=== PATIENT | female | born 1990 | race Hispanic/Latino ===

== ENCOUNTER 2018-07-31 18:45 | Inpatient (IN) | payer BC ==
[2018-07-31 20:06] VITALS: BMI 28.3
[2018-07-31] MEDS ORDERED: Lactated Ringer's 1,000 ML IV ONE (20:08)
[2018-07-31] MEDS ORDERED: Lactated Ringer's 1,000 ML IV SCH (20:15)
[2018-07-31 21:10] LABS: BASO % 0.3 % (0.0-2.0); EOS % 0.7 % (0.0-4.0); HEMOGLOBIN 11.5 g/dL (12.0-16.0); LYMPH # 1.7 K/uL (1.0-4.3); LYMPH % 24.5 % (20.0-40.0); MEAN CELL VOLUME 89.9 fl (81.0-99.0); MEAN CORPUSCULAR HEMOGLOBIN 30.5 pg (27.0-31.0); MEAN CORPUSCULAR HGB CONC 33.9 g/dL (33.0-37.0); MEAN PLATELET VOLUME 10.1 fl (7.2-11.7); MONO # 0.6 K/uL (0.0-0.8); MONO % 8.1 % (0.0-10.0); NEUT # 4.7 K/uL (1.8-7.0); NEUT % 66.4 % (50.0-75.0); NRBC % 0.2 % (0.0-0.0); RBC 3.78 Mil/uL (3.80-5.20); RED CELL DISTRIBUTION WIDTH 13.3 % (11.5-14.5); WHITE BLOOD COUNT 7.1 K/uL (4.8-10.8)
--- NOTE | 2018-08-01 04:42 | OBHP ---
Datetime: 07/31/2018 20:06 Admit Comment, IP Provider: 27 y/o , 40.2 wks with SHRADDHA of 07/29/18 based on LMP presents to [facility] with LOF that started 16:40 today. Patient reports leaking of clear fluid mixed with brownish dischag e every 30 mins which increases with standing up. Denies VB. Reports irregular CTx and lower abdomina l pressure and endorses good FM. Denies dysuria, F/C/N/V/D. : Dr. Vang, Denies any complications. Currently on Synthroid 50 mcg for Hypothyroidism. PMHx: Hypothyropidism x 1 year PSHx: Denies Allergies: NKDA Medications: Levothyroxine, PNVs F/H: Noncontributory SOcial: Denies ETOH/smoking/drugs PE: Gen: NAD Heart: RRR, S1S2 present Lungs: CTAB Abdomen: NT, gravid, BS+ Ext: No pedal edema or calf tenderness SSE: Gross pooling + No VB(Done by Dr. Hunt) SVE: Fingertip A/P: 27 y/o , 40.2 wks with SHRADDHA of 07/29/18 based on LMP presents with SROM - EFM and Strang monitoring - SSE: Gross pooling + No VB - SVE: Fingertip - admit to hospital - HIV Neg, RPR neg, HbSAg Neg, Rubella immune, GBS Neg - Initiate labor protocol - LR 999 and 125 - Cytotec 25 mg followed by 50 mg Q4 - Monitor for cervical changes Case discussed with OB attending Patrick Mahoney, PGY1 Patrick Mahoney, PGY1 Pelvic Type - PN: Not Done Extremities - PN: Normal Abdomen - PN: Normal Back - PN: Normal Breast - PN: Not Done Lungs - PN: Normal Heart - PN: Normal Thyroid - PN: Normal Neurologic - PN: Normal HEENT - PN: Normal General - PN: Normal Comments, ACOG Physical Exam: Gen: NAD Heart: RRR, S1S2 present Lungs: CTAB Abdomen: NT, gravid, BS+ Ext: No pedal edema or calf tenderness SSE: Gross pooling + No VB(Done by Dr. Hunt) SVE: Fingertip IP Hx Assessment: The History has been Reviewed and is Current EGA AdmitDate IP: 40.2 IP Indication for Induction: PROM IP Chief Complaint: Suspected ruptured membranes Genitourinary Exam: Normal DTRs - PN: Not Done Datetime: 07/31/2018 19:51 IP Adm Impression: Term, intrauterine ; No Active Labor; Ruptured Membranes IP Admit Plan: Admit to unit Presentation-Admit: Oblique FHR - Baseline A Provider: 130 Amniotic Fluid Color, Provider: Clear Membranes, Provider: Ruptured Contraction Comments Provider: Irregular Pool Provider: Positive Vital Signs Provider: Reviewed; Within Normal Limits NICHD Variability Prov Fetus A: Moderate 6-25bpm NICHD Accel Fetus A IP Provider: [id number] FHR Category Provider Fetus A: Category I NICHD Decel Fetus A IP Provider: None Dilatation, Provider: Fingertip
[2018-08-01] MEDS ORDERED: Oxytocin 30 UNIT 30 UNITS/500 ML BAG IV ONE ×2 (08:45→16:59)
[2018-08-01] MEDS: Lactated Ringer's 1,000 ML IV SCH ×3 (08:55→22:21)
[2018-08-01] MEDS ORDERED: Succinylcholine Chloride 20 mg/ml Syr (5 ml) IV ONE (16:54)
[2018-08-01] MEDS ORDERED: Propofol 10 mg/ml Inj (20 ML) ONE (16:54)
[2018-08-01] MEDS ORDERED: ceFAZolin 1 GM in Sodium Chloride 0.9% 100 ML IVPB ONE (16:57)
[2018-08-01] MEDS ORDERED: Azithromycin 500 MG in Sodium Chloride 0.9% 250 ML IVPB STA (16:58)
[2018-08-01] MEDS ORDERED: OXYTOCIN/0.9 % NS 20 UNIT/1,000 ML BAG IV ONE (16:59)
[2018-08-01] MEDS ORDERED: ePHEDrine 50 mg/ml Inj ONE (17:10)
[2018-08-01] MEDS ORDERED: Oxycodone/Acetaminophen 5/325 mg Tab PO PRN ×4 (17:36→21:48)
[2018-08-01] MEDS ORDERED: Naloxone 0.4 mg/ml Inj (Adult) IVP PRN ×2 (17:41→21:48)
[2018-08-01] MEDS ORDERED: DiphenhydrAMINE 50 mg/ml Inj IVP PRN ×2 (17:41→21:48)
[2018-08-01] MEDS ORDERED: Lactated Ringer's 1,000 ML IV SCH ×4 (17:45→21:48)
--- NOTE | 2018-08-01 21:27 | OBDS ---
DELIVERY PERSONNEL Delivery Doctor: Iban Ogden MD Scrub Nurse: Nina Andres Credit Risk Analyst: MBorreoRN/S LatestaRN/MLamelaRNC/MLongoriaRN Anesthesiologist: Emilie Garcia MD Resident: Dr Jhony Hagen(OB Fellow) Surgeon MATERNAL INFORMATION Delivery Anesthesia: General Medications in Delivery: Pitocin Estimated Blood Loss (ml): 800 Placenta Cultured: No Maternal Complications: Other RN Comments: prolapse cord Provider Comments: see operative report LABOR SUMMARY EDC: 07/29/2018 00:00 No. Babies in Womb: 0 Attempted: No Labor Anesthesia: None LABOR INFORMATION Reason for Induction: Not Applicable Cervical Ripening Agents: Cytotec @ 50 Oxytocin: Augmentation Group B Beta Strep: Negative Antibiotics # of Doses: Ancef 1 gramI IVPB and Zithromax 500mg IVPB Antibiotics Time of Last Dose: 1700 and 1725 Steroids Given: None Reason Steroids Not Administered: Not Applicable MEMBRANES Membranes Rupture Method: Spontaneous Rupture of Membranes: 07/31/2018 16:00 Length of Rupture (hrs): 25.03 Amniotic Fluid Color: Clear Amniotic Fluid Amount: Small Amniotic Fluid Odor: Normal STAGES OF LABOR Stage 3 hrs: 0 Stage 3 min: 1 CSECTION DELIVERY Primary Indication: Primary C-S cord prolapse CSection Urgency: Emergency CSection Incidence: Primary Labor: Labor Elective: N/A CSection Incision: Lower Uterine Transverse BABY A INFORMATION Delivery Date/Time: 08/01/2018 17:02 Method of Delivery: Born in Route : No : N/A Forceps: N/A Vacuum Extraction: N/A Shoulder Dystocia : No SHOULDER DYSTOCIA BABY A Delivery Date/Time: 08/01/2018 17:02 PRESENTATION/POSITION BABY A Presentation: Cephalic Cephalic Presentation: Vertex Breech Presentation: N/A PLACENTA INFORMATION BABY A Placenta Delivery Time : 08/01/2018 17:03 Placenta Method of Delivery: Manual Removal Placenta Status: Delivered SCORES BABY A Heart Rate 1 min: >100 bpm Resp Effort 1 min: Good Cry Reflex Irritability 1 min: Cough or Sneeze or Pulls Away Muscle Tone 1 min: Active Motion Color 1 min: Body [place], Extremities Blue Resuscitation Effort 1 min: Tactile Stimulation SCORE 1 MIN: 9 Heart Rate 5 min: >100 bpm Resp Effort 5 min: Good Cry Reflex Irritability 5 min: Cough or Sneeze or Pulls Away Muscle Tone 5 min: Active Motion Color 5 min: Body [place], Extremities Blue Resuscitation Effort 5 min: N/A SCORE 5 MIN: 9 INFANT INFORMATION BABY A Gestational Age at Delivery: 40.2 Gestational Status: Post-term Outcome : Liveborn Condition : Stable Sex: Male IDENTIFICATION/MEDS BABY A ID Band Number: [id number] ID Band Location: Left Leg; Left Arm Vitamin K Given : Not Given Erythromycin Given: Not Given WEIGHT/LENGTH BABY A Infant Birthweight (gms): 3280 Infant Weight (lb): 7 Weight (oz): 4 CORD INFORMATION BABY A No. Cord Vessels: 3 Nuchal Cord : N/A Nuchal Cord Other: n/a True Knot: n/a Infant Cord pH Baby Arterial: n/a Infant Cord pH Baby Venous: n/a Cord Blood Taken: Yes Banking/Donate Info: n/a Suction: None ASSESSMENT BABY A Infant Complications: None Physical Findings at Delivery: Within Normal Limits Infant Respirations: Appears Normal Power Shovel Mechanic/ALS Called : No Infant Care By: Dr Bolaños/Sanam Sharp/[place] Transferred To: [facility]
[2018-08-02] MEDS: Lactated Ringer's 1,000 ML IV SCH (05:51)
[2018-08-02 06:30] LABS: HEMOGLOBIN 8.7 g/dL (12.0-16.0); MEAN CELL VOLUME 90.4 fl (81.0-99.0); MEAN CORPUSCULAR HEMOGLOBIN 30.1 pg (27.0-31.0); MEAN CORPUSCULAR HGB CONC 33.2 g/dL (33.0-37.0); RBC 2.9 Mil/uL (3.80-5.20); RED CELL DISTRIBUTION WIDTH 13.6 % (11.5-14.5); WHITE BLOOD COUNT 8.6 K/uL (4.8-10.8)
[2018-08-02] MEDS: Levothyroxine 50 MCG TAB PO SCH (06:53)
--- NOTE | 2018-08-02 07:40 | OP ---
PROCEDURE DATE: 08/01/2018 PREOPERATIVE DIAGNOSIS: A 5 cm dilated cord prolapse, variable decelerations. POSTOPERATIVE DIAGNOSIS: A 5 cm dilated cord prolapse, variable decelerations. SURGEON: Taqueria Ogden MD MASTER FISHER: Dr. Chayo Hagen. ESTIMATED BLOOD LOSS: 800 mL. URINE OUTPUT: Girard catheter put out approximately 300 mL of clear urine. IV FLUID INTAKE: Patient received approximately 1800 mL of D5 LR intraoperatively. OPERATIVE FINDINGS: Baby boy, vertex presentation, weighing 3280 g. Apgars 9 and 9. Normal uterus, tubes, and ovaries were identified. COMPLICATIONS: There were no complications. DESCRIPTION OF PROCEDURE: After informed consent was obtained, the patient was taken to the operating room where she was given general anesthesia. The patient was prepped and draped in a normal sterile fashion. A Pfannenstiel skin incision was then made with the scalpel and carried down to the layer of fascia. The fascia was nicked in the midline. The fascial incision was then extended laterally with the curved Hinson scissors. The superior aspect of the fascial incision was then grasped with Terry clamps, elevated up, and the fascia was dissected off using the curved Hinson scissors. Attention was then turned to the superior aspect of the fascial incision, which in similar fashion was grasped with Terry clamps, elevated up, and the rectus muscles were dissected off using both sharp and blunt dissection. The rectus muscles were then in the midline. The peritoneum identified and entered sharply with the Metzenbaum scissors. Peritoneal incision was then extended superiorly and inferiorly with good visualization of the bladder. The bladder blade was then inserted. The vesicouterine peritoneum was identified and entered sharply with the Metzenbaum scissors. The bladder flap was then created digitally. Uterine incision was then made with the scalpel and extended laterally by manual dissection. The infant's head was then delivered atraumatically. The nose and mouth were suctioned with DeLee suction trap. The cord was clamped and cut. The was handed off to the awaiting pediatricians. The placenta was then removed manually. The uterus was then exteriorized and cleared of all clots and debris. The uterine incision was then repaired with 0 Vicryl in a running locked fashion. The second layer of the same suture was used to obtain excellent hemostasis. The uterus was returned to the abdomen. The abdomen was then copiously irrigated. The irrigant was removed with the suction device. The gutters were cleared of all clots and debris. The incision was noted to be hemostatic. The peritoneum was then closed with 2-0 Vicryl in a running fashion. The muscle was reapproximated with 0 Vicryl in an interrupted fashion. The fascia was closed with 0 Vicryl in a running fashion. The skin was closed with 3-0 on a Eros needle. All sponge, lap, needle, and instrument counts were correct x2, and the patient was taken to the recovery room in awake and stable condition. Taqueria Ogden MD
[2018-08-02] MEDS ORDERED: Multivitamin With Minerals Tab PO SCH (09:00)
[2018-08-02] MEDS ORDERED: Levothyroxine 50 MCG TAB PO SCH (09:00)
[2018-08-02] MEDS: Multivitamin With Minerals Tab PO SCH (09:22)
[2018-08-03] MEDS: Levothyroxine 50 MCG TAB PO SCH (06:52)
[2018-08-03] MEDS: Multivitamin With Minerals Tab PO SCH (08:55)
--- NOTE | 2018-08-03 13:37 | OBPPN ---
Datetime: 08/03/2018 13:33 PP Pain Prov: Within normal limits PP Nausea Prov: Denies PP Flatus Prov: Yes PP Breasts Prov: Normal PP Heart Prov: Normal PP Lungs Prov: Normal PP Abdomen/Uterus Prov: Normal PP Lochia Prov: Normal PP Vulva/Perineum Prov: Normal PP CVA Tenderness Prov: Normal PP Extremities Prov: Normal PP Comments Phys Exam Prov: Fundus firm PP Impression Prov: Normal progression PP Plan Prov: Continue present management PP Progress Note Prov: Patient evaluated, denies CP, no SOB, no N/V, tolerating PO diet, ambulating/ voiding well, mild lochia, abdominal pain tolerable witih meds, +flatus, no BM A/P POD #2 1. Continue orders and pain management 2. Encourage ambulation/ IP PP Procedures: None Vital Signs Provider PP: Reviewed; Within Normal Limits
--- NOTE | 2018-08-03 15:05 | OBPPN ---
Datetime: 08/02/2018 15:00 PP Pain Prov: Within normal limits PP Nausea Prov: Denies PP Flatus Prov: Yes PP Breasts Prov: Normal PP Heart Prov: Normal PP Lungs Prov: Normal PP Abdomen/Uterus Prov: Normal PP Lochia Prov: Normal PP Vulva/Perineum Prov: Normal PP CVA Tenderness Prov: Normal PP Extremities Prov: Normal PP C/S Incision Prov: Normal PP Progress Prov: Normal PP Impression Prov: Normal progression PP Plan Prov: Continue present management PP Progress Note Prov: Status post , patient requiring well Regular diet Patient bed and ambulate Girard, void check Postop CBC Pain control IP PP Procedures: None Vital Signs Provider PP: Reviewed; Within Normal Limits
[2018-08-04] MEDS: Levothyroxine 50 MCG TAB PO SCH (06:29)
--- NOTE | 2018-08-04 08:36 | OBPPN ---
Datetime: 08/04/2018 08:34 PP Pain Prov: Within normal limits PP Nausea Prov: Denies PP Flatus Prov: Yes PP BM Prov: No PP Breasts Prov: Normal PP Heart Prov: Normal PP Lungs Prov: Normal PP Abdomen/Uterus Prov: Normal PP Lochia Prov: Normal PP Vulva/Perineum Prov: Normal PP CVA Tenderness Prov: Normal PP Extremities Prov: Normal PP Comments Phys Exam Prov: Fundus firm under umbilicus Incision clean/dry/intact PP Impression Prov: Normal progression PP Plan Prov: Continue present management; Discharge PP Progress Note Prov: Patient denies CP, no SOB, no N/V, tolerating PO diet, ambulating/voiding wel l, mild lochia, abdominal pain tolerable with meds, +flatus A/P POD #3 1. Patient for discharge 2. Discharge instructions reviewed IP PP Procedures: None Vital Signs Provider PP: Reviewed; Within Normal Limits
--- NOTE | 2018-08-04 08:37 | OBDCSUM ---
Datetime: 08/04/2018 08:35 Discharged to, Provider: Home Follow up at, Provider: Dr. Vang Disch Instr Activity: Normal activity Disch Instr Diet: Regular Discharge Instructions, Provider: Routine instructions given Discharge Diagnosis, Provider: Term Delivered Discharge Time: 08/04/2018 08:35 Follow up in weeks, Provider: 1 wk, 6 wks Disch Referrals: None Contraception discussed, Prov: Yes
[2018-08-04] MEDS: Multivitamin With Minerals Tab PO SCH (09:43)
[2018-08-04 19:24] VITALS: BP 118/68; PULSE 78; RESP 20; TEMP 97.8; O2SAT 99
== END 2018-08-04 13:50 | disposition home or self-care (01) | DRG 788 ==
LOC: H.EROB2 18:45 → H.L&D 20:09 → H.OB/GYN 08-01 16:11 → H.L&D 08-01 16:19 → H.OB/GYN 08-01 21:28
PROVIDERS: ADMIT Obstetrics & Gynecology; ATTEND Obstetrics & Gynecology
PROC: 4A1HXCZ Monitoring of Products of Conception, Cardiac Rate, External Approach (ICD-10-PCS; 2018-07-31)
PROC: 10D00Z1 Extraction of Products of Conception, Low, Open Approach (ICD-10-PCS; principal; 2018-08-01)
DX: O76 Abnormality in fetal heart rate and rhythm complicating labor and delivery (principal); O99.284 Endocrine, nutritional and metabolic diseases complicating childbirth; E03.9 Hypothyroidism, unspecified; Z37.0 Single live birth; Z3A.40 40 weeks gestation of pregnancy; O48.0 Post-term pregnancy